=== PATIENT | male | born 1985 | race Caucasian/White ===

== ENCOUNTER 2021-11-16 23:15 | Emergency (ER) | payer BC ==
[~2021-11-16] VITALS: Ht 180.3 cm; Wt 141.1 kg
[2021-11-16 23:19] VITALS: BP 161/94
--- NOTE | 2021-11-16 23:26 | NUR ---
TO LOBBY FOLLOWING TRIAGE
--- NOTE | 2021-11-17 00:30 | NUR ---
PT TAKEN TO RADIOLOGY
--- NOTE | 2021-11-17 00:43 | NUR ---
PT RETURN FROM RADIOLOGY
--- NOTE | 2021-11-17 01:04 | NUR ---
PT AMBULATORY TO BED #4
--- NOTE | 2021-11-17 01:59 | NUR ---
36 Y/O MALE BIBS FROM HOME, C/O LEFT LOWER RIB PAIN SINCE 163. PT STATES HE FELL IN THE SHOWER AT APPROX 1630, NO TRAUMA, BRUISING, OR REDNESS. PT DESCRIBES THE PAIN SHARP 10/10 PAIN EXACERBATED BY MOVEMENT. NO NECK/BACK/HEAD PAIN. DENIES N/V/D, COUGH, FEVER, SOB, OR CP. SKIN IS PINK/WARM/DRY. A/OX4, UNLABORED BREATHING, AND AMBULATORY W/O ASSISTANCE. NO PMH ALL: TO PCN
--- NOTE | 2021-11-17 01:59 | NUR ---
Dr. Boyd examining patient.
--- NOTE | 2021-11-17 02:02 | NUR ---
ERMD AT BEDSIDE EXAMINING PT
[2021-11-17] MEDS ORDERED: KETOROLAC 60 MG/2 ML VIAL IM ONE (02:05)
[2021-11-17] MEDS ORDERED: IBUP-2213 PO (02:07)
[2021-11-17 02:43] VITALS: BP 156/90
--- NOTE | 2021-11-17 02:44 | NUR ---
Patient discharged with v/s stable. Written and verbal after care instructions given and explained. Patient alert, oriented and verbalized understanding of instructions. Ambulatory with steady gait. All questions addressed prior to discharge. ID band removed. Patient advised to follow up with PMD. Rx of IBUPROFEN given. Patient educated on indication of medication including possible reaction and side effects. Opportunity to ask questions provided and answered. VSS, A/OX4, UNLABORED BREATHING, AMBULATORY, AND CALM DEMEANOR.
== END 2021-11-17 02:44 | disposition home or self-care (01) ==
LOC: MED 23:15
DX: S20.20XA Contusion of thorax, unspecified, initial encounter (principal); Z98.890 Other specified postprocedural states; W19.XXXA Unspecified fall, initial encounter; Y93.89 Activity, other specified; Y92.89 Other specified places as the place of occurrence of the external cause; Y99.8 Other external cause status
CPT/HCPCS: 71101; 96372; 99283; J1885